=== PATIENT | male | born 2000 | race Hispanic/Latino ===

== ENCOUNTER 2022-10-30 17:53 | Emergency (ER) | payer OTHER ==
[~2022-10-30] VITALS: Ht 165.1 cm; Wt 95.3 kg
[2022-10-30] MEDS ORDERED: KETOROLAC 15MG/ML VIAL (15MG/ML) IM ONE (18:30)
[2022-10-30 19:20] VITALS: BP 139/83
== END 2022-10-30 20:09 | disposition home or self-care (01) ==
LOC: EDH 17:53
DX: S89.82XA Other specified injuries of left lower leg, initial encounter (principal); F17.200 Nicotine dependence, unspecified, uncomplicated; V49.59XA Passenger injured in collision with other motor vehicles in traffic accident, initial encounter; Y93.I9 Activity, other involving external motion; Y92.488 Other paved roadways as the place of occurrence of the external cause; Y99.8 Other external cause status
CPT/HCPCS: 99283; 96372; J1885